=== PATIENT | male | born 1975 | race Caucasian/White ===

== ENCOUNTER 2021-03-26 08:22 | Emergency (ER) | payer OTHER ==
[2021-03-26 08:30] VITALS: BMI 33.4
[2021-03-26 10:01] LABS: BASO % 0.9 % (0-2.0); EOS % 1.4 % (0-4.5); HEMATOCRIT 47.2 % (35.4-49); HEMOGLOBIN 16.5 GM/dL (11.7-16.9); MCH 30.1 pg (25.7-33.7); MEAN CELL VOLUME 86.1 fl (80-96); MEAN PLT VOLUME 11.6 fl (7.5-11.1); MONO % 7.3 % (3.8-10.2); NEUT % 64.4 % (42.8-82.8); PLATELET COUNT 192 10^3/uL (134-434); RBC 5.49 M/mm3 (4.00-5.60); RDW 13.1 % (11.9-15.9); WHITE BLOOD COUNT 9.4 K/mm3 (4.0-10.0)
[2021-03-26 10:24] LABS: CALCIUM 9.2 mg/dL (8.5-10.1)
[2021-03-26 10:25] LABS: ALBUMIN 3.6 g/dl (3.4-5.0); BLOOD UREA NITROGEN 9.3 mg/dL (7-18)
[2021-03-26 10:28] LABS: CREATININE 1.1 mg/dL (0.55-1.3)
[2021-03-26 10:29] LABS: BILIRUBIN,TOTAL 0.6 mg/dL (0.2-1)
[2021-03-26 10:30] LABS: TOT PROT 7.9 g/dl (6.4-8.2)
[2021-03-26] MEDS ORDERED: SODIUM CHLORIDE 0.9% 500 ML INFUS.BAG IV ONE (10:42)
[2021-03-26] MEDS ORDERED: FLUCONAZOLE 150 MG TABLET PO ONE ×2 (11:42→11:54)
[2021-03-26 12:46] LABS: PH,URINE 5.5 (5.0-8.0); URINE APPEARANCE CLEAR; URINE BILIRUBIN NEGATIVE (NEGATIVE); URINE COLOR YELLOW; URINE GLUCOSE (UA) 3+ (NEGATIVE); URINE KETONE 1+ (NEGATIVE); URINE LEUK ESTERASE NEGATIVE (NEGATIVE); URINE NITRITE NEGATIVE (NEGATIVE); URINE PROTEIN TRACE (NEGATIVE); URINE UROBILINOGEN 0.2 mg/dL (0.2-1.0)
[2021-03-26 13:21] VITALS: BP 132/74; PULSE 78; TEMP 98
== END 2021-03-26 13:19 | disposition home or self-care (01) ==
LOC: EDBD → JER 08:22
DX: N47.1 Phimosis (principal)
CPT/HCPCS: 36415; 71045-TC-FY; 80053; 81003; 82550; 82553; 82962; 84484; 85025; 85730; 87077; 87086; 87491; 87591; 93005; 93010; 99283-25

== ENCOUNTER 2023-09-25 06:27 | Emergency (ER) | payer OTHER ==
[2023-09-25 06:34] VITALS: BP 145/80; PULSE 65; RESP 20; TEMP 97.5; BMI 31.1
[2023-09-25] MEDS ORDERED: CLINDAMYCIN HCL 150 MG CAPSULE (FP) ONE (08:55)
[2023-09-25] MEDS: CLINDAMYCIN HCL 150 MG CAPSULE (FP) PO ONE (09:00)
[2023-09-25] MEDS ORDERED: IBUPROFEN 600 MG TABLET (FP) PO ONE (09:01)
[2023-09-25] MEDS: IBUPROFEN 600 MG TABLET (FP) PO ONE (09:03)
== END 2023-09-25 09:07 | disposition home or self-care (01) ==
LOC: JER 06:27
DX: L02.413 Cutaneous abscess of right upper limb (principal)
CPT/HCPCS: 99283-25